=== PATIENT | male | born 1980 | race Two or more races ===

== ENCOUNTER 2024-06-11 12:35 | Emergency (ER) | payer OTHER ==
[2024-06-11 12:42] VITALS: BP 118/82; PULSE 77; RESP 20; TEMP 97.6; BMI 31.6
[2024-06-11] MEDS: DIPHTH,PERTUSS(ACELL),TET 0.5 ML DISP.SYRIN IM ONE (14:04)
[2024-06-11] MEDS ORDERED: DIPHTH,PERTUSS(ACELL),TET 0.5 ML DISP.SYRIN IM ONE (14:05)
[2024-06-11] MEDS ORDERED: IBUPROFEN 600 MG TABLET (FP) PO ONE (15:14)
[2024-06-11] MEDS ORDERED: BACITRACIN ZINC 15 GM TUBE TOPICAL OINTMENT ONE (15:14)
[2024-06-11] MEDS ORDERED: CEPHALEXIN MONOHYDRATE 500 MG CAPSULE (UD) ONE (15:14)
[2024-06-11] MEDS: CEPHALEXIN MONOHYDRATE 500 MG CAPSULE (UD) PO ONE (15:17)
[2024-06-11] MEDS: SULFAMETHOXAZOLE/TRIMETHOPRIM 800MG/160MG D.S. TABLET PO ONE (15:17)
[2024-06-11] MEDS: IBUPROFEN 600 MG TABLET (FP) PO ONE (15:17)
== END 2024-06-11 15:18 | disposition home or self-care (01) ==
LOC: JERFT 12:35
PROC: 0HQFXZZ Repair Right Hand Skin, External Approach (ICD-10-PCS; principal; 2024-06-11)
PROC: 3E0234Z Introduction of Serum, Toxoid and Vaccine into Muscle, Percutaneous Approach (ICD-10-PCS; 2024-06-11)
DX: S61.411A Laceration without foreign body of right hand, initial encounter (principal); W26.8XXA Contact with other sharp object(s), not elsewhere classified, initial encounter; Y99.0 Civilian activity done for income or pay; Z23 Encounter for immunization
CPT/HCPCS: 90715; 99284-25